=== PATIENT | female | born 1970 | race Caucasian/White ===

== ENCOUNTER 2025-01-27 17:49 | Emergency (ER) | payer MEDICAID ==
[2025-01-27] MEDS: Ketorolac 30 MG/ML SDV IM ONE (21:31)
[2025-01-27] MEDS: HYDROmorphone 1 MG/ML Syringe IM ONE (21:32)
[2025-01-27] MEDS: Lidocaine 4% Patch TOP STA (21:32)
== END 2025-01-27 22:15 | disposition home or self-care (01) ==
LOC: MW.ED 17:49
DX: M51.26 Other intervertebral disc displacement, lumbar region (principal); F17.210 Nicotine dependence, cigarettes, uncomplicated; Z91.041 Radiographic dye allergy status; Z79.899 Other long term (current) drug therapy; Z75.8 Other problems related to medical facilities and other health care
CPT/HCPCS: 72131; 96372; 99283; A9270; J1171; J1885; 99284